=== PATIENT | female | born 1945 | race Two or more races ===

== ENCOUNTER 2019-12-13 11:45 | Emergency (ER) | payer SELFPAY ==
[~2019-12-13] VITALS: Ht 147.3 cm; Wt 65.8 kg
--- NOTE | 2019-12-13 11:52 | PHYS DOC ---
Past History Past Medical History: No Pertinent History Past Surgical History: No Surgical History Smoking: Non-smoker Alcohol Use: None Drug Use: None General Adult EDM: Chief Complaint: CHEST PAIN HPI: HPI: 74-year-old female presents with 3-week history of intermittent chest pains. Patient reports no trauma. Denies any nausea or vomiting. Denies diaphoresis. Denies cough. Patient denies any radiation. Reports pain primarily to left side. Reports moderate in intensity but resolves on its own. Denies known exposure to COVID-19. Denies fever or chills. Patient primarily Mongolian-speaking and therefore utilizing family member for interpretation. Review of Systems: Review of Systems: Constitutional: Denies fever or chills Eyes: Denies redness or eye pain HENT: Denies nasal congestion or sore throat Respiratory: Denies cough or shortness of breath Cardiovascular: Reports chest pain; denies palpitations GI: Denies abdominal pain, nausea, or vomiting : Denies dysuria or hematuria Musculoskeletal: Denies back pain or joint pain Integument: Denies rash or skin lesions Neurologic: Denies headache, focal weakness or sensory changes Complete systems were reviewed and found to be within normal limits, except as documented in this note. Heart Score: HEART Score for Chest Pain: HEART Score for Chest Pain Response (Comments) Value History Moderately Suspicious 1 ECG Normal 0 Age > 65 2 Risk Factors No Risk Factors 0 Troponin < Normal Limit 0 Total 3 Risk Factors: Risk Factors: DM, Current or recent (<one month) smoker, HTN, HLP, family history of CAD, obesity. Risk Scores: Score 0 - 3: 2.5% MACE over next 6 weeks - Discharge Home Score 4 - 6: 20.3% MACE over next 6 weeks - Admit for Clinical Observation Score 7 - 10: 72.7% MACE over next 6 weeks - Early Invasive Strategies Current Medications: Current Meds: Current Medications Medications (Trade) Dose Ordered Sig/Tatyana Start Time Stop Time Status Last Admin Dose Admin Aspirin (Mala Aspirin) 325 mg 1X ONCE 12/13/19 12:00 12/13/19 12:01 UNV Allergies: Allergies: Allergies Coded Allergies Type Severity Reaction Last Updated Verified No Known Drug Allergies 12/13/19 No Physical Exam: PE: Constitutional: Well developed, well nourished, no acute distress, non-toxic appearance HENT: Normocephalic, atraumatic Eyes: Conjunctiva normal, no discharge Neck: Normal range of motion, no tenderness, supple Lungs & Thorax: Equal chest rise and fall, no respiratory distress Abdomen: Soft, no tenderness Skin: Warm, dry, no erythema, no rash Back: No tenderness, no CVA tenderness Extremities: No tenderness, ROM intact, no edema Neurologic: Alert and oriented X 3, normal motor function, normal sensory function, no focal deficits noted Psychologic: Affect normal, judgment normal EKG: EKG: @1147 NSR at 73bpm, NO ST elevation, QRS 94ms, QT/QTc 376/418ms Radiology/Procedures: Radiology/Procedures: PROCEDURE: PORTABLE CHEST 1V Chest AP portable at 1133: Reason for examination: Chest pain. The heart size is normal. Mediastinum is unremarkable. There is some calcification at the left hilum. Lung lin show a linear density at the right lung base which may reflect some atelectasis. No other infiltrates or pleural effusions are seen.. No acute bony abnormalities are seen. Impression: Linear density probably reflecting atelectasis in the right lung base. No other focal abnormality seen in the chest. Electronically signed by: Charu Pena MD (12/13/2019 12:13 PM) [id number] PROCEDURE: CT ANGIOGRAPHY CHEST CT ANGIOGRAPHY CHEST INDICATION: chest pain, elevated d-dimer Comparison: Chest radiograph 12/13/2019. TECHNIQUE: Following the uneventful administration of intravenous contrast, 100 cc Omnipaque 350, axial CT sections were obtained through the lungs and upper abdomen. Multiplanar reconstructions and MIP images were obtained. PQRS compliance statement: One or more of the following individualized dose reduction techniques were utilized for this examination: 1. Automated exposure control 2. Adjustment of the mA and/or kV according to patient size 3. Use of iterative reconstruction technique FINDINGS: Pulmonary arteries: No evidence of pulmonary thromboembolic disease. Lungs and Airways: No pulmonary mass or consolidation. No abnormality of the central airways. Pleura: The pleural spaces are normal. Heart and Mediastinum: Punctate left thyroid calcification. No axillary or supraclavicular lymphadenopathy. No mediastinal, hilar or retrocrural lymphadenopathy. Cardiomegaly. Coronary artery atherosclerotic disease. No pericardial effusion. Atherosclerosis of the thoracic aorta. Abdomen: Limited images through the upper abdomen show no abnormality of the visualized organs. Bones and Soft Tissues: Degenerative changes of the spine. IMPRESSION: 1. No evidence of pulmonary thromboembolic disease. 2. No pulmonary mass or consolidation. 3. Coronary artery atherosclerotic disease Electronically signed by: Kameron Jimenez MD (12/13/2019 4:33 PM) [facility] Course & Med Decision Making: Course & Med Decision Making Pertinent Labs and Imaging studies reviewed. (See chart for details) Elderly patient presents with 3-week history of intermittent left-sided chest pain. Patient with low cardiac risk factors. No signs of PE/DVT. EKG stable. Labs obtained and posted to chart. Troponin within normal limits. D-dimer slightly elevated. Chest x-ray without acute process. CTA chest also without any acute finding. HEART score 3. Patient offered observation admission which she declined. Patient will follow closely with her PCP. Patient stable for discharge with outpatient follow-up with PCP. Discussed findings and plan with patient and family, who acknowledge understanding and agreement. Dragon Disclaimer: Dragon Disclaimer: This electronic medical record was generated, in whole or in part, using a voice recognition dictation system. Departure Departure: Impression: Primary Impression: Chest pain Qualified Codes: R07.9 - Chest pain, unspecified Disposition: HOME/RESIDENCE PRIOR TO ADM Condition: STABLE Referrals: PCP,NO (PCP) SONIA WEST MD Patient Instructions: Chest Pain (Nonspecific), [id number] Scripts Acetaminophen With Codeine (ACETAMINOPHEN-COD #4 TABLET) 1 Each Tablet 1 EACH PO Q6HRS PRN for PAIN, #14 TAB Prov: FIDEL AMOR DO 12/13/19 Justification of Admission: Justification of Admission: Justification of Admission Dx: N/A FIDEL AMOR DO Dec 13, 2019 11:52
[2019-12-13] MEDS ORDERED: ASPIRIN 325 MG TABLET PO ONE (12:00)
--- NOTE | 2019-12-13 12:16 | RAD ---
Chest AP portable at 1133: Reason for examination: Chest pain. The heart size is normal. Mediastinum is unremarkable. There is some calcification at the left hilum. Lung lin show a linear density at the right lung base which may reflect some atelectasis. No other infiltrates or pleural effusions are seen.. No acute bony abnormalities are seen. Impression: Linear density probably reflecting atelectasis in the right lung base. No other focal abnormality seen in the chest. Electronically signed by: Charu Pena MD (12/13/2019 12:13 PM) [facility]
[2019-12-13 12:26] LABS: BASO # 0.1 x10^3/uL (0.0-0.2); BASO % 1 % (0-3); EOS % 1 % (0-3); HEMATOCRIT 41.7 % (36.0-47.0); HEMOGLOBIN 13.9 g/dL (12.0-15.5); LYMPH # 1.9 x10^3/uL (1.0-4.8); LYMPH % 29 % (24-48); MEAN CORPUSCULAR HEMOGLOBIN 29 pg (25-35); MEAN CORPUSCULAR HGB CONC 33 g/dL (31-37); MEAN CORPUSCULAR VOLUME 88 fL (79-100); MONO # 0.5 x10^3/uL (0.0-1.1); MONO % 8 % (0-9); NEUT % 62 % (31-73); PLATELET COUNT 161 x10^3/uL (140-400); RED BLOOD COUNT 4.74 x10^6/uL (3.50-5.40); RED CELL DISTRIBUTION WIDTH 14.4 % (11.5-14.5); WHITE BLOOD COUNT 6.5 x10^3/uL (4.0-11.0)
[2019-12-13 12:35] VITALS: BP 155/84
[2019-12-13 12:41] LABS: HEMOGLOBIN ISTAT 13.9 gm/dL; POTASSIUM ISTAT 3.5 mmol/L (3.5-5.0)
[2019-12-13] MEDS ORDERED: IV NORMAL SALINE 1,000ML 1,000 ML IV ONE (14:45)
[2019-12-13] MEDS ORDERED: IOHEXOL 350 MG/ML 100 ML VIAL. IV ONE (14:45)
--- NOTE | 2019-12-13 14:53 | EKG ---
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
[2019-12-13 16:07] LABS: ALBUMIN 4.2 g/dL (3.4-5.0); ALBUMIN/GLOBULIN RATIO 1.2 (1.0-1.7); ALK PHOS 72 U/L (46-116); TOTAL BILIRUBIN 0.6 mg/dL (0.2-1.0)
[2019-12-13 16:08] LABS: ALT (SGPT) 30 U/L (14-59); AST (SGOT) 34 U/L (15-37)
[2019-12-13 16:09] LABS: LIPASE 238 U/L (73-393); MAGNESIUM 2.2 mg/dL (1.8-2.4)
[2019-12-13 16:10] LABS: TOTAL PROTEIN 7.8 g/dL (6.4-8.2)
--- NOTE | 2019-12-13 16:36 | RAD ---
CT ANGIOGRAPHY CHEST INDICATION: chest pain, elevated d-dimer Comparison: Chest radiograph 12/13/2019. TECHNIQUE: Following the uneventful administration of intravenous contrast, 100 cc Omnipaque 350, axial CT sections were obtained through the lungs and upper abdomen. Multiplanar reconstructions and MIP images were obtained. PQRS compliance statement: One or more of the following individualized dose reduction techniques were utilized for this examination: 1. Automated exposure control 2. Adjustment of the mA and/or kV according to patient size 3. Use of iterative reconstruction technique FINDINGS: Pulmonary arteries: No evidence of pulmonary thromboembolic disease. Lungs and Airways: No pulmonary mass or consolidation. No abnormality of the central airways. Pleura: The pleural spaces are normal. Heart and Mediastinum: Punctate left thyroid calcification. No axillary or supraclavicular lymphadenopathy. No mediastinal, hilar or retrocrural lymphadenopathy. Cardiomegaly. Coronary artery atherosclerotic disease. No pericardial effusion. Atherosclerosis of the thoracic aorta. Abdomen: Limited images through the upper abdomen show no abnormality of the visualized organs. Bones and Soft Tissues: Degenerative changes of the spine. IMPRESSION: 1. No evidence of pulmonary thromboembolic disease. 2. No pulmonary mass or consolidation. 3. Coronary artery atherosclerotic disease Electronically signed by: Kameron Jimenez MD (12/13/2019 4:33 PM) [facility]
[2019-12-13] MEDS ORDERED: ACET-1871 PO (16:47)
== END 2019-12-13 17:04 | disposition home or self-care (01) ==
LOC: ER 11:45
DX: R07.89 Other chest pain (principal)
CPT/HCPCS: 36415; 71045; 71275; 80047; 80053; 82553; 83690; 83735; 83880; 84484; 85025; 85379; 85610; 85730; 93005; 96361; 96374; 99285; J3010; J7030; Q9967